=== PATIENT | male | born 1950 | race Caucasian/White ===

== ENCOUNTER 2019-09-29 18:52 | Inpatient (IN) ==
[2019-09-29 19:54] LABS: Basophils % 0.4 % (0.0-0.8); Eosinophils # 0.1 10*3/uL (0.0-0.87); Eosinophils % 1.2 % (0.00-10.9); Hemoglobin 16.5 GM/DL (14.0-18.0); Immature Granulocytes % 0.4 %; Immature Granulocytes Absolute 0.03 #; Lymphocytes # 1.7 10*3/uL (1.4-4.0); Lymphocytes % 24.1 % (21.2-54.2); Mean Corpuscular HGB Conc 34.4 GM/DL (32-36); Mean Corpuscular Volume 95.6 FL (87-102); Monocytes % 11.3 % (1.7-12.7); Neutrophils % 62.6 % (38.7-73.9); Platelet Count 169 T/CUMM (130-400); Red Blood Count 5.02 MC/CUMM (3.8-5.5); Red Cell Distribution Width 12.4 % (9.3-17.3); White Blood Count 6.9 T/CUMM (4-12)
[2019-09-29 20:05] LABS: INR 1.1; PT Patient Result 11.7 SECS (9.6-12.2); Partial Thromboplastin Time 25.9 SECS (20.8-36.0)
[2019-09-29 20:13] LABS: Alanine Aminotransferase 46 U/L (16-61); Albumin 3.6 G/DL (3.4-5.0); Alkaline Phosphatase 74 U/L (45-117); Aspartate Amino Transferase 42 U/L (0-37); Blood Urea Nitrogen 8 MG/DL (7-18); Calcium 9.8 MG/DL (8.5-10.1); Estimated Glom Filtration Rate 101 ML/MIN; Glucose 86 MG/DL (74-106); Total Protein 6.6 G/DL (6.4-8.3)
[2019-09-29] MEDS ORDERED: ALUMINUM/MAGNES/SIMETH MAX STR 30 ML UDCUP PO PRN (20:40)
[2019-09-29] MEDS ORDERED: ALBUTEROL/IPRATROPIUM 3 ML NEB RESP TX PRN (20:40)
[2019-09-29] MEDS ORDERED: hydrALAZINE 20 MG/1 ML VIAL IV PRN (20:40)
[2019-09-29] MEDS ORDERED: ACETAMINOPHEN 325 MG TABLET PO PRN (20:40)
[2019-09-29] MEDS ORDERED: ONDANSETRON 4 MG/2 ML VIAL IV PRN (20:40)
[2019-09-29] MEDS ORDERED: diphenhydrAMINE CAP 25 MG CAPSULE PO PRN (20:40)
[2019-09-29] MEDS ORDERED: NICOTINE 21 MG/24 HR PATCH TRANSDERM PRN (20:40)
[2019-09-29] MEDS ORDERED: ATORVASTATIN 40 MG TABLET PO SCH (21:00)
[2019-09-29 21:23] LABS: Risk Ratio 6.58; Thyroid Stimulating Hormone 2.83 uIU/ml (0.358-3.74); VLDL CHOLESTEROL 75.2 MG/DL
[2019-09-29] MEDS: ENOXAPARIN 40 MG/0.4 ML SYRINGE SUBCUT SCH (22:17)
[2019-09-29 22:41] LABS: Apearance,Urine CLEAR (Clear); Bilirubin,Urine Negative (Negative); Blood, Urine Negative (Negative); Glucose,Urine (UA) Negative (Negative); Ketones,Urine Negative (Negative); Mucus,Urine Few /LPF (Occasional); Nitrite,Urine Negative (Negative); Protein,Urine Negative; RBC,Urine 8 /HPF (0-4); Urine Color Yellow (Yellow); Urine Specific Gravity 1.012 (1.001-1.035); Urine Urobilinogen < 2.0 EU/DL (0.2-1.0); WBC,Urine 4 /HPF (0-6)
[2019-09-29 22:54] LABS: Barbiturates Screen,Urine Negative (Negative); Benzodiazepines Screen,Urine Negative (Negative); Cannabinoid Screen,Urine Negative (Negative); Opiate Screen,Urine Negative (Negative); Phencyclidine Screen,Urine Negative (Negative)
[2019-09-30] MEDS ORDERED: ASPIRIN 325 MG TABLET PO SCH (09:00)
[2019-09-30] MEDS: CLOPIDOGREL 75 MG TABLET PO SCH (14:05)
[2019-09-30] MEDS: ATORVASTATIN 80 MG TABLET PO SCH (21:11)
[2019-09-30] MEDS: ENOXAPARIN 40 MG/0.4 ML SYRINGE SUBCUT SCH (21:11)
[2019-10-01] MEDS: CLOPIDOGREL 75 MG TABLET PO SCH (09:29)
[2019-10-01] MEDS: ASPIRIN EC 81 MG TABLET PO SCH (09:29)
[2019-10-01] MEDS: ATORVASTATIN 80 MG TABLET PO SCH (20:10)
[2019-10-01] MEDS: ENOXAPARIN 40 MG/0.4 ML SYRINGE SUBCUT SCH (20:10)
[2019-10-02] MEDS: ASPIRIN EC 81 MG TABLET PO SCH (09:52)
[2019-10-02] MEDS: CLOPIDOGREL 75 MG TABLET PO SCH (09:52)
[2019-10-02 16:43] VITALS: BP 140/76
== END 2019-10-02 17:33 | DRG 65 ==
LOC: N.EDINP 18:52 → N.ED 18:52 → SUATTDRO 20:40 → N.4E 21:01
PROVIDERS: ADMIT Internal Medicine; ATTEND Family Medicine

== ENCOUNTER 2020-05-28 19:56 | Observation (INO) ==
[2020-05-28] MEDS ORDERED: ASPIRIN 325 MG TABLET PO STA (20:23)
[2020-05-28] MEDS ORDERED: MORPHINE 4 MG/1 ML VIAL IV STA (20:24)
[2020-05-28] MEDS ORDERED: NITROGLYCERIN 2% OINT 1 INCH/GM PACK TOP STA (20:24)
[2020-05-28] MEDS ORDERED: ONDANSETRON 4 MG/2 ML VIAL IV STA (20:24)
[2020-05-28] MEDS ORDERED: ALUM/MAG/SIMETH/LIDO VISC 1:1 30 ML BOTTLE PO STA (20:24)
[2020-05-28 20:33] LABS: Basophils # 0.1 10*3/uL (0.0-0.2); Basophils % 0.8 % (0.0-0.8); Eosinophils # 0.3 10*3/uL (0.0-0.87); Eosinophils % 4.1 % (0.00-10.9); Hematocrit 45.6 VOL% (42.0-52.0); Hemoglobin 16.2 GM/DL (14.0-18.0); Immature Granulocytes % 0.3 %; Immature Granulocytes Absolute 0.02 #; Lymphocytes # 2.5 10*3/uL (1.4-4.0); Lymphocytes % 32.6 % (21.2-54.2); Mean Corpuscular HGB Conc 35.5 GM/DL (32-36); Mean Corpuscular Volume 90.1 FL (87-102); Mean Platelet Volume 10.5 FL (9.6-12.0); Monocytes % 8.7 % (1.7-12.7); Neutrophils % 53.5 % (38.7-73.9); Platelet Count 192 T/CUMM (130-400); Red Blood Count 5.06 MC/CUMM (3.8-5.5); Red Cell Distribution Width 12.4 % (9.3-17.3); White Blood Count 7.6 T/CUMM (4-12)
[2020-05-28 20:42] LABS: PT Patient Result 10.9 SECS (9.8-11.9); Partial Thromboplastin Time 25.4 SECS (23.9-33.8)
[2020-05-28 21:00] LABS: Albumin 4.1 G/DL (3.4-5.0); Bilirubin,Total 1.2 MG/DL (0.2-1.0); Calcium 9.7 MG/DL (8.5-10.1); Osmolality,Calculated 279.3 MOS/KG (273-304); Total Protein 7.9 G/DL (6.4-8.3)
[2020-05-28] MEDS ORDERED: MORPHINE 4 MG/1 ML VIAL IV PRN (21:08)
[2020-05-28] MEDS ORDERED: GLUCAGON 1 MG VIAL IM PRN (21:08)
[2020-05-28] MEDS ORDERED: ONDANSETRON 4 MG/2 ML VIAL IV PRN (21:08)
[2020-05-28] MEDS ORDERED: DEXTROSE 50% 25 GM/50 ML VIAL IV PRN (21:08)
[2020-05-28] MEDS ORDERED: DEXTROSE 50% 25 GM/50 ML SYRINGE IV PRN (21:14)
[2020-05-28] MEDS ORDERED: ENOXAPARIN 40 MG/0.4 ML SYRINGE SUBCUT SCH (21:30)
[2020-05-29] MEDS ORDERED: NITROGLYCERIN 2% OINT 1 INCH/GM PACK TOP SCH (03:00)
[2020-05-29 07:44] VITALS: BP 131/75
[2020-05-29 08:03] LABS: Risk Ratio 2.89; VLDL CHOLESTEROL 40.4 MG/DL
[2020-05-29] MEDS ORDERED: ISOSORBIDE MONONITRATE 60 MG TABLET PO SCH (09:00)
[2020-05-29] MEDS ORDERED: CLOPIDOGREL 75 MG TABLET PO SCH (09:00)
[2020-05-29] MEDS ORDERED: ASPIRIN EC 81 MG TABLET PO SCH (21:00)
[2020-05-29] MEDS ORDERED: ATORVASTATIN 80 MG TABLET PO SCH (21:00)
== END 2020-05-29 11:05 | disposition home or self-care (01) ==
LOC: N.ED 19:56 → N.EDINP 19:56 → N.4E 05-29 00:07
PROVIDERS: ADMIT Internal Medicine; ATTEND Internal Medicine

== ENCOUNTER 2020-08-25 12:12 | Inpatient (IN) ==
[2020-09-04] MEDS ORDERED: GLUCAGON 1 MG VIAL IM PRN (08:38)
[2020-09-04] MEDS ORDERED: DEXTROSE 50% 25 GM/50 ML VIAL IV PRN (08:38)
[2020-09-04] MEDS ORDERED: CLORAZEPATE 3.75 MG TABLET PO PRN (12:11)
[2020-09-04] MEDS ORDERED: ZALEPLON 5 MG CAPSULE PO PRN (12:12)
[2020-09-04] MEDS ORDERED: MORPHINE 4 MG/1 ML VIAL IV PRN (12:12)
[2020-09-04] MEDS ORDERED: NITROGLYCERIN SL 0.4 MG TABLET SL PRN (12:12)
[2020-09-04 13:09] LABS: Basophils % 0.5 % (0.0-0.8); Eosinophils # 0.1 10*3/uL (0.0-0.87); Eosinophils % 1.6 % (0.00-10.9); Hematocrit 41.2 VOL% (42.0-52.0); Hemoglobin 13.7 GM/DL (14.0-18.0); Immature Granulocytes % 0.4 %; Immature Granulocytes Absolute 0.03 #; Lymphocytes # 1.2 10*3/uL (1.4-4.0); Lymphocytes % 14.5 % (21.2-54.2); Mean Corpuscular HGB Conc 33.3 GM/DL (32-36); Mean Corpuscular Volume 90.5 FL (87-102); Mean Platelet Volume 10.1 FL (9.6-12.0); Monocytes % 6.8 % (1.7-12.7); Neutrophils % 76.2 % (38.7-73.9); Platelet Count 269 T/CUMM (130-400); Red Blood Count 4.55 MC/CUMM (3.8-5.5); Red Cell Distribution Width 14.6 % (9.3-17.3); White Blood Count 7.9 T/CUMM (4-12)
[2020-09-04 13:32] LABS: Albumin 3.6 G/DL (3.4-5.0); Bilirubin,Total 1.1 MG/DL (0.2-1.0); Calcium 9.7 MG/DL (8.5-10.1); Osmolality,Calculated 277.7 MOS/KG (273-304); Potassium 3.9 MMOL/L (3.5-5.1); Total Protein 7.7 G/DL (6.4-8.3)
[2020-09-04] MEDS: CHLORHEXIDINE 4% SOLN 118 ML BOTTLE TOP SCH ×3 (13:38→20:45)
[2020-09-04] MEDS: CHLORHEXIDINE 0.12% ORAL RINSE 60 ML BOTTLE SWISH/SPIT SCH ×2 (13:55→20:45)
[2020-09-04] MEDS: SODIUM CHLORIDE 0.9% 1,000 ML IV SCH (15:16)
[2020-09-04 16:01] LABS: ABG Base Excess 1.6 MMOL/L (-2.5-2.5); ABG HCO3 25.8 MMOL/L (20-26); ABG Oxygen Saturation 95.3 % (95-100); ABG PCO2 40.3 MM HG (35-48); ABG PO2 76.6 MM HG (80-95); ABG TCO2 22.8 MMOL/L (23-27); Allen Test Positive; Pt O2 Delivery Device Room Air
[2020-09-05] MEDS ORDERED: CEFUROXIME INJ 1,500 MG in SYRINGE 1 EACH IV ONE (05:00)
[2020-09-05] MEDS ORDERED: PAPAVERINE 60 MG/2 ML VIAL ONE (05:05)
[2020-09-05] MEDS ORDERED: VANCOMYCIN 1,000 MG VIAL ONE (05:05)
[2020-09-05] MEDS ORDERED: VANCOMYCIN 500 MG VIAL ONE (05:05)
[2020-09-05] MEDS ORDERED: AMINOCAPROIC ACID 5,000 MG/20 ML VIAL ONE ×4 (05:47)
[2020-09-05] MEDS ORDERED: LIDOCAINE 2% 5 ML VIAL ONE ×2 (05:52→11:22)
[2020-09-05] MEDS ORDERED: VECURONIUM 10 MG VIAL IV ONE ×4 (05:54→08:13)
[2020-09-05] MEDS ORDERED: MIDAZOLAM 10 MG/2 ML VIAL ONE ×6 (05:56→08:08)
[2020-09-05] MEDS ORDERED: ETOMIDATE 40 MG/20 ML VIAL IV ONE (05:57)
[2020-09-05] MEDS ORDERED: SUFentanil 250 MCG/5 ML AMP ONE ×2 (05:58→06:06)
[2020-09-05] MEDS ORDERED: SODIUM CHLORIDE 0.9% 1,000 ML IV ONE ×2 (06:00→10:35)
[2020-09-05] MEDS ORDERED: LACTATED RINGERS 1,000 ML IV ONE (06:00)
[2020-09-05] MEDS ORDERED: SODIUM CHLORIDE 0.9% 250 ML IV ONE (06:00)
[2020-09-05] MEDS ORDERED: HEPARIN/NACL 0.9% 2 UNITS/ML 500 ML IV ONE (06:00)
[2020-09-05] MEDS ORDERED: PHENYLEPHRINE DRIP 20 MG/250 ML PREMIX IV ONE (06:00)
[2020-09-05] MEDS ORDERED: CALCIUM CHLORIDE 1,000 MG/10 ML VIAL IV ONE ×2 (06:01→11:59)
[2020-09-05] MEDS ORDERED: MINERAL OIL/PETROLATUM OPH OINT 3.5 GM TUBE ONE (06:02)
[2020-09-05] MEDS ORDERED: SEVOFLURANE 1 UNIT/15 MINUTE INH ONE ×12 (06:03→10:42)
[2020-09-05 07:31] LABS: ABG Base Excess -0.4 MMOL/L (-2.5-2.5); ABG HCO3 24.1 MMOL/L (20-26); ABG Oxygen Saturation 99.9 % (95-100); ABG PCO2 41.5 MM HG (35-48); ABG PH 7.382 (7.35-7.45); ABG TCO2 21.6 MMOL/L (23-27); Glucose Heart Surgery 109 MG/DL (74-106); Hematocrit Heart Surgery 39.9 PERCENT (42-52); PCO2 Patient Temp Arterial 41.5 MMHG; PH Patient Temp Arterial 7.382; Patient Temperature 37 CELCIUS; Potassium Heart/CVR 3.8 MMOL/L (3.5-5.1); Sodium Heart/CVR 141 MMOL/L (135-145)
[2020-09-05 09:26] LABS: Hematocrit Heart Surgery 27.8 PERCENT (42-52); PCO2 Patient Temp Venous 32.2 MM HG; PH Patient Temp Venous 7.478; PO2 Patient Temp Venous 38.1 MM HG; Potassium Heart/CVR 4.7 MMOL/L (3.5-5.1); VBG Base Excess 0.8 MEQ/L (0-4); VBG HCO3 24.9 MEQ/L (24-28); VBG Oxygen Saturation 83.1 %; VBG PCO2 37.2 MMHG (41-51); VBG PH 7.433; VBG PO2 46.9 MMHG (17-40)
[2020-09-05] MEDS ORDERED: PHENYLEPHRINE DRIP 40 MG/250 ML PREMIX IV ONE (09:31)
[2020-09-05] MEDS ORDERED: ALBUMIN 5% 12.5 GM/250 ML VIAL IV ONE ×3 (09:31→13:08)
[2020-09-05] MEDS ORDERED: POTASSIUM CHLORIDE RIDER 100 ML IV ONE (09:32)
[2020-09-05] MEDS ORDERED: PROTAMINE SULFATE 50 MG/5 ML VIAL IV ONE ×2 (09:32→13:08)
[2020-09-05 09:55] LABS: Hematocrit Heart Surgery 29.4 PERCENT (42-52); Hemoglobin Heart Surgery 9.5 G/DL (14.0-18.0); PCO2 Patient Temp Venous 33.5 MM HG; PH Patient Temp Venous 7.46; PO2 Patient Temp Venous 40.5 MM HG; Potassium Heart/CVR 5.4 MMOL/L (3.5-5.1); VBG Base Excess 0.5 MEQ/L (0-4); VBG HCO3 24.7 MEQ/L (24-28); VBG Oxygen Saturation 84.5 %; VBG PCO2 38.8 MMHG (41-51); VBG PH 7.416; VBG PO2 49.7 MMHG (17-40); VBG Total CO2 22.8 MMOL/L
[2020-09-05 10:33] LABS: Hematocrit Heart Surgery 28.1 PERCENT (42-52); Hemoglobin Heart Surgery 9.1 G/DL (14.0-18.0); PCO2 Patient Temp Venous 32.5 MM HG; PH Patient Temp Venous 7.457; PO2 Patient Temp Venous 33.7 MM HG; Potassium Heart/CVR 5.4 MMOL/L (3.5-5.1); VBG Base Excess -0.4 MEQ/L (0-4); VBG HCO3 23.8 MEQ/L (24-28); VBG Oxygen Saturation 76.2 %; VBG PCO2 37.6 MMHG (41-51); VBG PH 7.413; VBG PO2 41.6 MMHG (17-40); VBG Total CO2 22.2 MMOL/L
[2020-09-05 10:59] LABS: Hematocrit Heart Surgery 28.5 PERCENT (42-52); Hemoglobin Heart Surgery 9.2 G/DL (14.0-18.0); PCO2 Patient Temp Venous 40.5 MM HG; PH Patient Temp Venous 7.39; PO2 Patient Temp Venous 44.1 MM HG; Potassium Heart/CVR 4.4 MMOL/L (3.5-5.1); VBG Base Excess -0.4 MEQ/L (0-4); VBG HCO3 23.8 MEQ/L (24-28); VBG Oxygen Saturation 77.7 %; VBG PCO2 40.5 MMHG (41-51); VBG PH 7.39; VBG PO2 44.1 MMHG (17-40); VBG Total CO2 22.6 MMOL/L
[2020-09-05] MEDS: CHLORHEXIDINE 0.12% ORAL RINSE 60 ML BOTTLE SWISH/SPIT SCH ×2 (11:16→20:12)
[2020-09-05] MEDS: SODIUM CHLORIDE 0.9% 1,000 ML IV SCH (11:17)
[2020-09-05] MEDS ORDERED: methylPREDNISolone SOD SUC 1,000 MG/8 ML VIAL ONE (11:22)
[2020-09-05] MEDS ORDERED: MAGNESIUM SULFATE 5 GM/10 ML VIAL IV ONE (11:22)
[2020-09-05] MEDS ORDERED: ALBUMIN 25% 25 GM/100 ML VIAL IV ONE (11:22)
[2020-09-05 11:23] LABS: ABG Base Excess -1.5 MMOL/L (-2.5-2.5); ABG HCO3 23.2 MMOL/L (20-26); ABG PCO2 34.9 MM HG (35-48); ABG PH 7.418 (7.35-7.45); ABG TCO2 20.7 MMOL/L (23-27); Glucose Heart Surgery 166 MG/DL (74-106); Hematocrit Heart Surgery 28.5 PERCENT (42-52); Hemoglobin Heart Surgery 9.2 G/DL (14.0-18.0); Ionized Calcium Arterial 1.22 MMOL/L (1.21-1.46); PCO2 Patient Temp Arterial 34.9 MMHG; PH Patient Temp Arterial 7.418; Patient Temperature 37 CELCIUS; Potassium Heart/CVR 3.8 MMOL/L (3.5-5.1); Sodium Heart/CVR 134 MMOL/L (135-145)
[2020-09-05] MEDS ORDERED: HEPARIN 10,000 UNIT/10 ML VIAL ONE (11:23)
[2020-09-05] MEDS ORDERED: SODIUM BICARBONATE 50 MEQ/50 ML VIAL IV ONE (11:23)
[2020-09-05] MEDS ORDERED: MANNITOL 100 GM/500 ML BAG IV ONE (11:23)
[2020-09-05] MEDS ORDERED: DEXTROSE 5% KCL 20 MEQ 20 MEQ/1,000 ML BAG IV ONE (11:23)
[2020-09-05] MEDS ORDERED: FUROSEMIDE 20 MG/2 ML VIAL ONE (11:23)
[2020-09-05] MEDS ORDERED: PROTAMINE SULFATE 250 MG/25 ML VIAL IV ONE (11:23)
[2020-09-05] MEDS ORDERED: THROMBIN TOPICAL (RECOMBINANT) 5,000 UNIT VIAL TOP ONE (12:00)
[2020-09-05] MEDS ORDERED: SODIUM CHLORIDE 0.45% 1,000 ML IV SCH ×2 (12:06)
[2020-09-05] MEDS ORDERED: ONDANSETRON 4 MG/2 ML VIAL IV PRN (12:06)
[2020-09-05] MEDS ORDERED: INSULIN REGULAR 100 UNIT/ML IV ONE (12:06)
[2020-09-05] MEDS ORDERED: CHLORHEXIDINE 4% SOLN 118 ML BOTTLE TOP PRN (12:06)
[2020-09-05] MEDS ORDERED: PHENYLEPHRINE DRIP 40 MG/250 ML PREMIX IV PRN (12:06)
[2020-09-05] MEDS ORDERED: CALCIUM CHLORIDE 1,000 MG/10 ML SYRINGE IV PRN (12:06)
[2020-09-05] MEDS ORDERED: NITROPRUSSIDE 100 MG in DEXTROSE 5% 250 ML IV PRN (12:06)
[2020-09-05] MEDS ORDERED: ACETAMINOPHEN 650 MG SUPP RECTAL PRN (12:06)
[2020-09-05] MEDS ORDERED: MORPHINE 10 MG/1 ML VIAL IV PRN (12:06)
[2020-09-05] MEDS ORDERED: POTASSIUM CHLORIDE RIDER 10 MEQ in PREMIX 1 EACH IV PRN (12:06)
[2020-09-05] MEDS ORDERED: MAGNESIUM SULF RIDER 2 GM in PREMIX 1 EACH IV PRN (12:06)
[2020-09-05] MEDS ORDERED: VECURONIUM 10 MG VIAL IV PRN ×2 (12:06)
[2020-09-05] MEDS ORDERED: DEXTROSE 50% 25 GM/50 ML VIAL IV PRN ×2 (12:06)
[2020-09-05] MEDS ORDERED: MORPHINE 4 MG/1 ML VIAL IV PRN (12:06)
[2020-09-05] MEDS ORDERED: MIDAZOLAM 2 MG/2 ML VIAL IV PRN (12:06)
[2020-09-05] MEDS ORDERED: LACTATED RINGERS 250 ML IV PRN (12:06)
[2020-09-05] MEDS ORDERED: MIDAZOLAM 10 MG/2 ML VIAL IV PRN (12:06)
[2020-09-05] MEDS ORDERED: MAGNESIUM SULF RIDER 4 GM in PREMIX 1 EACH IV PRN (12:06)
[2020-09-05] MEDS ORDERED: INSULIN REGULAR 100 UNIT/ML IV PRN (12:06)
[2020-09-05] MEDS: LACTATED RINGERS 1,000 ML IV PRN ×3 (12:30→17:30)
[2020-09-05 13:08] LABS: ABG Base Excess -1.7 MMOL/L (-2.5-2.5); ABG HCO3 22.3 MMOL/L (20-26); ABG Oxygen Saturation 97.3 % (95-100); ABG PCO2 34.9 MM HG (35-48); ABG PH 7.424 (7.35-7.45); ABG PO2 107.6 MM HG (80-95); ABG TCO2 23.4 MMOL/L (23-27); Glucose Heart Surgery 135 MG/DL (74-106); Hemoglobin Heart Surgery 9.3 G/DL (14.0-18.0); Potassium Heart/CVR 3.7 MMOL/L (3.5-5.1)
[2020-09-05 13:11] LABS: Basophils % 0.3 % (0.0-0.8); Eosinophils % 0.3 % (0.00-10.9); Hematocrit 26.2 VOL% (42.0-52.0); Hemoglobin 8.8 GM/DL (14.0-18.0); Immature Granulocytes % 0.6 %; Immature Granulocytes Absolute 0.06 #; Lymphocytes # 0.6 10*3/uL (1.4-4.0); Lymphocytes % 6.4 % (21.2-54.2); Mean Corpuscular HGB Conc 33.6 GM/DL (32-36); Mean Corpuscular Volume 90.7 FL (87-102); Monocytes % 6.4 % (1.7-12.7); Platelet Count 152 T/CUMM (130-400); Red Blood Count 2.89 MC/CUMM (3.8-5.5); Red Cell Distribution Width 14.4 % (9.3-17.3); White Blood Count 10.1 T/CUMM (4-12)
[2020-09-05 13:23] LABS: INR 1.2; PT Patient Result 12.9 SECS (9.8-11.9); Partial Thromboplastin Time 31.1 SECS (23.9-33.8)
[2020-09-05] MEDS: POTASSIUM CHLORIDE RIDER 20 MEQ in PREMIX 1 EACH IV PRN (13:30)
[2020-09-05 13:32] LABS: CKMB % 7.6 %
[2020-09-05 13:39] LABS: Albumin 3.2 G/DL (3.4-5.0); Bilirubin,Total 1.8 MG/DL (0.2-1.0); Calcium 8.6 MG/DL (8.5-10.1); Osmolality,Calculated 278.5 MOS/KG (273-304); Potassium 3.8 MMOL/L (3.5-5.1); Total Protein 5.6 G/DL (6.4-8.3)
[2020-09-05 13:41] LABS: Troponin I 7.32 NG/ML (0.00-0.045)
[2020-09-05] MEDS: INSULIN REGULAR DRIP 100 ML IV SCH ×2 (14:06→23:19)
[2020-09-05] MEDS: ALBUMIN 5% 12.5 GM in PREMIX 1 EACH IV PRN ×2 (14:45→17:10)
[2020-09-05 15:57] LABS: ABG HCO3 22.8 MMOL/L (20-26); ABG Oxygen Saturation 99.4 % (95-100); ABG PCO2 36.6 MM HG (35-48); ABG PH 7.395 (7.35-7.45); Glucose Heart Surgery 176 MG/DL (74-106); Hematocrit Heart Surgery 35.8 PERCENT (42-52); Hemoglobin Heart Surgery 11.6 G/DL (14.0-18.0); Potassium Heart/CVR 5.6 MMOL/L (3.5-5.1)
[2020-09-05 19:42] LABS: ABG Base Excess -1.7 MMOL/L (-2.5-2.5); ABG HCO3 23.2 MMOL/L (20-26); ABG Oxygen Saturation 97.7 % (95-100); ABG PCO2 39.5 MM HG (35-48); ABG PH 7.386 (7.35-7.45); ABG PO2 111.8 MM HG (80-95); ABG TCO2 24.4 MMOL/L (23-27); Glucose Heart Surgery 178 MG/DL (74-106); Hemoglobin Heart Surgery 11.8 G/DL (14.0-18.0); Potassium Heart/CVR 4.8 MMOL/L (3.5-5.1)
[2020-09-05] MEDS: CEFUROXIME INJ 1,500 MG in SYRINGE 1 EACH IV SCH (20:12)
[2020-09-05 21:34] LABS: CKMB % 5.3 %; Troponin I 4.42 NG/ML (0.00-0.045)
[2020-09-05 22:32] LABS: ABG Base Excess -3.2 MMOL/L (-2.5-2.5); ABG HCO3 21.7 MMOL/L (20-26); ABG PCO2 43.6 MM HG (35-48); ABG PH 7.326 (7.35-7.45); ABG TCO2 20.6 MMOL/L (23-27); Glucose Heart Surgery 215 MG/DL (74-106); Hematocrit Heart Surgery 33.6 PERCENT (42-52); Hemoglobin Heart Surgery 10.9 G/DL (14.0-18.0); Potassium Heart/CVR 4.3 MMOL/L (3.5-5.1)
[2020-09-06 00:12] LABS: ABG Base Excess -1.8 MMOL/L (-2.5-2.5); ABG HCO3 22.9 MMOL/L (20-26); ABG Oxygen Saturation 97.8 % (95-100); ABG PCO2 38.8 MM HG (35-48); ABG PH 7.389 (7.35-7.45); ABG PO2 115.6 MM HG (80-95); ABG TCO2 24.1 MMOL/L (23-27); Glucose Heart Surgery 181 MG/DL (74-106); Hemoglobin Heart Surgery 11.1 G/DL (14.0-18.0); Potassium Heart/CVR 4.4 MMOL/L (3.5-5.1)
[2020-09-06 01:12] LABS: ABG Base Excess -2.2 MMOL/L (-2.5-2.5); ABG HCO3 22.5 MMOL/L (20-26); ABG Oxygen Saturation 98.4 % (95-100); ABG PCO2 41.5 MM HG (35-48); ABG PH 7.355 (7.35-7.45); ABG TCO2 20.9 MMOL/L (23-27); Glucose Heart Surgery 195 MG/DL (74-106); Hematocrit Heart Surgery 33.9 PERCENT (42-52); Potassium Heart/CVR 4.4 MMOL/L (3.5-5.1)
[2020-09-06 03:56] LABS: ABG Base Excess -1.9 MMOL/L (-2.5-2.5); ABG HCO3 22.8 MMOL/L (20-26); ABG Oxygen Saturation 98.3 % (95-100); ABG PCO2 38.6 MM HG (35-48); ABG PH 7.381 (7.35-7.45); ABG TCO2 20.6 MMOL/L (23-27); Glucose Heart Surgery 164 MG/DL (74-106)
[2020-09-06 04:03] LABS: Basophils % 0.1 % (0.0-0.8); Hematocrit 32.7 VOL% (42.0-52.0); Hemoglobin 10.9 GM/DL (14.0-18.0); Immature Granulocytes % 0.4 %; Immature Granulocytes Absolute 0.05 #; Lymphocytes # 0.7 10*3/uL (1.4-4.0); Lymphocytes % 5.6 % (21.2-54.2); Mean Corpuscular HGB Conc 33.3 GM/DL (32-36); Mean Corpuscular Volume 90.6 FL (87-102); Mean Platelet Volume 10.6 FL (9.6-12.0); Monocytes % 5.2 % (1.7-12.7); Neutrophils % 88.7 % (38.7-73.9); Platelet Count 168 T/CUMM (130-400); Red Blood Count 3.61 MC/CUMM (3.8-5.5); Red Cell Distribution Width 14.6 % (9.3-17.3); White Blood Count 12.8 T/CUMM (4-12)
[2020-09-06 04:22] LABS: Troponin I 3.42 NG/ML (0.00-0.045)
[2020-09-06] MEDS: POTASSIUM CHLORIDE RIDER 20 MEQ in PREMIX 1 EACH IV PRN (04:28)
[2020-09-06 04:45] LABS: Albumin 3.9 G/DL (3.4-5.0); Bilirubin,Direct 0.42 MG/DL (0.0-0.20); Bilirubin,Total 1.8 MG/DL (0.2-1.0); Calcium 8.8 MG/DL (8.5-10.1); Osmolality,Calculated 276.8 MOS/KG (273-304); Potassium 4.1 MMOL/L (3.5-5.1); Total Protein 6.2 G/DL (6.4-8.3)
[2020-09-06 05:08] LABS: ABG Base Excess -1.5 MMOL/L (-2.5-2.5); ABG HCO3 23.2 MMOL/L (20-26); ABG PCO2 40.5 MM HG (35-48); ABG PH 7.373 (7.35-7.45); ABG TCO2 21.3 MMOL/L (23-27); Glucose Heart Surgery 156 MG/DL (74-106); Hematocrit Heart Surgery 33.2 PERCENT (42-52); Hemoglobin Heart Surgery 10.7 G/DL (14.0-18.0); Potassium Heart/CVR 4.6 MMOL/L (3.5-5.1)
[2020-09-06] MEDS ORDERED: traMADol 50 MG TABLET PO PRN (08:48)
[2020-09-06] MEDS ORDERED: PANTOPRAZOLE 40 MG TABLET PO SCH (09:00)
[2020-09-06] MEDS ORDERED: SODIUM CHLOR 0.45% KCL 20 MEQ 20 MEQ/1,000 ML BAG IV SCH (09:34)
[2020-09-06] MEDS ORDERED: DEXTROSE 50% 25 GM/50 ML VIAL IV PRN ×2 (09:34)
[2020-09-06] MEDS ORDERED: MAGNESIUM SULF RIDER 4 GM in PREMIX 1 EACH IV PRN (09:34)
[2020-09-06] MEDS ORDERED: ALUMINUM/MAGNES/SIMETH MAX STR 30 ML UDCUP PO PRN (09:34)
[2020-09-06] MEDS ORDERED: ACETAMINOPHEN 325 MG TABLET PO PRN (09:34)
[2020-09-06] MEDS ORDERED: ONDANSETRON 4 MG/2 ML VIAL IV PRN (09:34)
[2020-09-06] MEDS ORDERED: GLUCAGON 1 MG VIAL IM PRN ×2 (09:34)
[2020-09-06] MEDS ORDERED: ZALEPLON 5 MG CAPSULE PO PRN (09:34)
[2020-09-06] MEDS ORDERED: MAGNESIUM SULF RIDER 2 GM in PREMIX 1 EACH IV PRN (09:34)
[2020-09-06] MEDS ORDERED: MAGNESIUM HYDROXIDE SUSP 30 ML UDCUP PO PRN (09:34)
[2020-09-06] MEDS: CEFUROXIME INJ 1,500 MG in SYRINGE 1 EACH IV SCH (09:35)
[2020-09-06] MEDS: CHLORHEXIDINE 0.12% ORAL RINSE 60 ML BOTTLE SWISH/SPIT SCH ×3 (09:38→21:19)
[2020-09-06] MEDS: FERROUS SULFATE 325 MG TABLET PO SCH (09:46)
[2020-09-06] MEDS: BEE POLLEN PO SCH ×2 (10:21→21:20)
[2020-09-06] MEDS: ISOSORBIDE MONONITRATE 60 MG TABLET PO SCH (10:21)
[2020-09-06] MEDS: amLODIPine 5 MG TABLET PO SCH (10:21)
[2020-09-06] MEDS: DUTASTERIDE 0.5 MG CAPSULE PO SCH (10:21)
[2020-09-06] MEDS: DOCUSATE SODIUM 100 MG CAPSULE PO SCH (10:22)
[2020-09-06] MEDS: oxyCODONE/ACETAMINOPHEN 5-325 MG TABLET PO PRN ×2 (10:22→18:46)
[2020-09-06] MEDS: KETOROLAC 30 MG/1 ML VIAL IV SCH ×3 (11:36→23:36)
[2020-09-06] MEDS: INSULIN REGULAR 100 UNIT/ML SUBCUT SCH ×3 (11:36→21:19)
[2020-09-06] MEDS: DICLOFENAC SODIUM 75 MG TABLET PO SCH ×2 (11:43→21:19)
[2020-09-06] MEDS: VENLAFAXINE 37.5 MG TABLET PO SCH (11:43)
[2020-09-06] MEDS: PYRIDOXINE 50 MG TABLET PO SCH (11:44)
[2020-09-06] MEDS: ASPIRIN EC 81 MG TABLET PO SCH (21:19)
[2020-09-06] MEDS: ATORVASTATIN 80 MG TABLET PO SCH (21:19)
[2020-09-07] MEDS: KETOROLAC 30 MG/1 ML VIAL IV SCH ×4 (05:12→22:31)
[2020-09-07] MEDS ORDERED: FUROSEMIDE 40 MG/4 ML VIAL IV ONE (06:00)
[2020-09-07 06:41] LABS: Basophils % 0.1 % (0.0-0.8); Hemoglobin 9.2 GM/DL (14.0-18.0); Immature Granulocytes % 0.6 %; Immature Granulocytes Absolute 0.09 #; Lymphocytes # 0.8 10*3/uL (1.4-4.0); Lymphocytes % 5.5 % (21.2-54.2); Mean Corpuscular HGB Conc 32.9 GM/DL (32-36); Mean Platelet Volume 11.2 FL (9.6-12.0); Monocytes % 5.9 % (1.7-12.7); Neutrophils % 87.9 % (38.7-73.9); Platelet Count 136 T/CUMM (130-400); Red Blood Count 2.98 MC/CUMM (3.8-5.5); Red Cell Distribution Width 14.6 % (9.3-17.3); White Blood Count 15.1 T/CUMM (4-12)
[2020-09-07 07:15] LABS: Albumin 3.3 G/DL (3.4-5.0); Bilirubin,Direct 0.22 MG/DL (0.0-0.20); Bilirubin,Indirect 1.4 MG/DL (0.0-1.0); Bilirubin,Total 1.6 MG/DL (0.2-1.0); CKMB % 2.2 %; Calcium 8.8 MG/DL (8.5-10.1); Osmolality,Calculated 281.5 MOS/KG (273-304); Potassium 4.2 MMOL/L (3.5-5.1); Total Protein 6.2 G/DL (6.4-8.3)
[2020-09-07 07:16] LABS: Troponin I 1.92 NG/ML (0.00-0.045)
[2020-09-07] MEDS: INSULIN REGULAR 100 UNIT/ML SUBCUT SCH ×4 (07:53→21:18)
[2020-09-07] MEDS: DUTASTERIDE 0.5 MG CAPSULE PO SCH (09:12)
[2020-09-07] MEDS: amLODIPine 5 MG TABLET PO SCH (09:12)
[2020-09-07] MEDS: ISOSORBIDE MONONITRATE 60 MG TABLET PO SCH (09:12)
[2020-09-07] MEDS: DOCUSATE SODIUM 100 MG CAPSULE PO SCH (09:12)
[2020-09-07] MEDS: FERROUS SULFATE 325 MG TABLET PO SCH (09:12)
[2020-09-07] MEDS: VENLAFAXINE 37.5 MG TABLET PO SCH (09:13)
[2020-09-07] MEDS: PYRIDOXINE 50 MG TABLET PO SCH (09:13)
[2020-09-07] MEDS: DICLOFENAC SODIUM 75 MG TABLET PO SCH ×2 (09:13→21:18)
[2020-09-07] MEDS: BEE POLLEN PO SCH ×2 (09:14→21:18)
[2020-09-07] MEDS: CHLORHEXIDINE 0.12% ORAL RINSE 60 ML BOTTLE SWISH/SPIT SCH ×2 (09:15→21:18)
[2020-09-07] MEDS: ATORVASTATIN 80 MG TABLET PO SCH (21:18)
[2020-09-07] MEDS: ASPIRIN EC 81 MG TABLET PO SCH (21:18)
[2020-09-08] MEDS: KETOROLAC 30 MG/1 ML VIAL IV SCH ×3 (04:37→16:50)
[2020-09-08 05:47] LABS: Basophils % 0.1 % (0.0-0.8); Eosinophils % 0.2 % (0.00-10.9); Hematocrit 27.4 VOL% (42.0-52.0); Immature Granulocytes % 0.8 %; Immature Granulocytes Absolute 0.08 #; Lymphocytes # 1.3 10*3/uL (1.4-4.0); Lymphocytes % 13.3 % (21.2-54.2); Mean Corpuscular HGB Conc 32.8 GM/DL (32-36); Mean Corpuscular Volume 91.3 FL (87-102); Mean Platelet Volume 10.9 FL (9.6-12.0); Monocytes % 7.8 % (1.7-12.7); Neutrophils % 77.8 % (38.7-73.9); Platelet Count 121 T/CUMM (130-400); Red Cell Distribution Width 14.6 % (9.3-17.3); White Blood Count 9.4 T/CUMM (4-12)
[2020-09-08 06:07] LABS: Calcium 8.5 MG/DL (8.5-10.1); Osmolality,Calculated 286.1 MOS/KG (273-304); Potassium 3.7 MMOL/L (3.5-5.1)
[2020-09-08 06:12] LABS: Alanine Aminotransferase 39 U/L (16-61); Albumin 3.2 G/DL (3.4-5.0); Alkaline Phosphatase 87 U/L (45-117); Aspartate Amino Transferase 38 U/L (0-37); Bilirubin,Indirect 1.7 MG/DL (0.0-1.0); Blood Urea Nitrogen 26 MG/DL (7-18); Calcium 8.7 MG/DL (8.5-10.1); Carbon Dioxide 29 MMOL/L (21-32); Estimated Glom Filtration Rate 103 ML/MIN; Glucose 91 MG/DL (74-106); Osmolality,Calculated 287.1 MOS/KG (273-304); Potassium 3.6 MMOL/L (3.5-5.1); Sodium 142 MMOL/L (136-145); Total Protein 6.3 G/DL (6.4-8.3)
[2020-09-08] MEDS: DUTASTERIDE 0.5 MG CAPSULE PO SCH (10:25)
[2020-09-08] MEDS: BEE POLLEN PO SCH ×2 (10:26→22:08)
[2020-09-08] MEDS: DOCUSATE SODIUM 100 MG CAPSULE PO SCH (10:27)
[2020-09-08] MEDS: VENLAFAXINE 37.5 MG TABLET PO SCH (10:27)
[2020-09-08] MEDS: FERROUS SULFATE 325 MG TABLET PO SCH (10:28)
[2020-09-08] MEDS: ISOSORBIDE MONONITRATE 60 MG TABLET PO SCH (10:28)
[2020-09-08] MEDS: PYRIDOXINE 50 MG TABLET PO SCH (10:29)
[2020-09-08] MEDS: DICLOFENAC SODIUM 75 MG TABLET PO SCH ×2 (10:29→22:17)
[2020-09-08] MEDS: amLODIPine 5 MG TABLET PO SCH (10:29)
[2020-09-08] MEDS: POTASSIUM CHLORIDE 20 MEQ TABLET PO PRN ×2 (10:30→11:29)
[2020-09-08] MEDS: CHLORHEXIDINE 0.12% ORAL RINSE 60 ML BOTTLE SWISH/SPIT SCH ×2 (10:31→22:07)
[2020-09-08] MEDS: INSULIN REGULAR 100 UNIT/ML SUBCUT SCH ×4 (11:00→22:08)
[2020-09-08] MEDS: ASCORBIC ACID 500 MG TABLET PO SCH ×2 (14:19→22:07)
[2020-09-08] MEDS: oxyCODONE/ACETAMINOPHEN 5-325 MG TABLET PO PRN (15:39)
[2020-09-08] MEDS ORDERED: NITROGLYCERIN SL 0.4 MG TABLET SL ONE (16:32)
[2020-09-08] MEDS: NITROGLYCERIN SL 0.4 MG TABLET SL PRN ×3 (16:35→16:45)
[2020-09-08] MEDS ORDERED: ALUM/MAG/SIMETH/LIDO VISC 1:1 30 ML BOTTLE PO ONE (16:46)
[2020-09-08] MEDS: HYDROmorphone 2 MG/1 ML VIAL IV PRN ×2 (17:12→22:05)
[2020-09-08] MEDS: METOPROLOL TARTRATE 25 MG TABLET PO SCH (22:06)
[2020-09-08] MEDS: ASPIRIN EC 81 MG TABLET PO SCH (22:06)
[2020-09-08] MEDS: ATORVASTATIN 80 MG TABLET PO SCH (22:07)
[2020-09-09] MEDS: KETOROLAC 30 MG/1 ML VIAL IV SCH ×5 (00:09→23:31)
[2020-09-09 05:41] LABS: Basophils % 0.2 % (0.0-0.8); Eosinophils # 0.1 10*3/uL (0.0-0.87); Eosinophils % 1.3 % (0.00-10.9); Hematocrit 28.5 VOL% (42.0-52.0); Hemoglobin 9.1 GM/DL (14.0-18.0); Immature Granulocytes % 0.5 %; Immature Granulocytes Absolute 0.04 #; Lymphocytes # 1.4 10*3/uL (1.4-4.0); Lymphocytes % 16.3 % (21.2-54.2); Mean Corpuscular HGB Conc 31.9 GM/DL (32-36); Mean Corpuscular Volume 94.7 FL (87-102); Mean Platelet Volume 10.6 FL (9.6-12.0); Monocytes % 6.2 % (1.7-12.7); Neutrophils % 75.5 % (38.7-73.9); Platelet Count 161 T/CUMM (130-400); Red Blood Count 3.01 MC/CUMM (3.8-5.5); Red Cell Distribution Width 14.6 % (9.3-17.3); White Blood Count 8.4 T/CUMM (4-12)
[2020-09-09 06:10] LABS: Calcium 9.3 MG/DL (8.5-10.1); Osmolality,Calculated 280.5 MOS/KG (273-304); Potassium 4.1 MMOL/L (3.5-5.1)
[2020-09-09] MEDS: INSULIN REGULAR 100 UNIT/ML SUBCUT SCH ×4 (08:07→21:25)
[2020-09-09] MEDS: DICLOFENAC SODIUM 75 MG TABLET PO SCH ×2 (09:40→21:23)
[2020-09-09] MEDS: DOCUSATE SODIUM 100 MG CAPSULE PO SCH (09:40)
[2020-09-09] MEDS: DUTASTERIDE 0.5 MG CAPSULE PO SCH (09:40)
[2020-09-09] MEDS: PYRIDOXINE 50 MG TABLET PO SCH (09:41)
[2020-09-09] MEDS: ISOSORBIDE MONONITRATE 60 MG TABLET PO SCH (09:41)
[2020-09-09] MEDS: ASCORBIC ACID 500 MG TABLET PO SCH ×2 (09:41→21:22)
[2020-09-09] MEDS: VENLAFAXINE 37.5 MG TABLET PO SCH (09:42)
[2020-09-09] MEDS: BEE POLLEN PO SCH ×2 (09:43→21:25)
[2020-09-09] MEDS: FERROUS SULFATE 325 MG TABLET PO SCH (09:43)
[2020-09-09] MEDS: METOPROLOL TARTRATE 25 MG TABLET PO SCH ×2 (10:16→21:23)
[2020-09-09] MEDS: CHLORHEXIDINE 0.12% ORAL RINSE 60 ML BOTTLE SWISH/SPIT SCH ×2 (10:16→21:28)
[2020-09-09] MEDS: oxyCODONE/ACETAMINOPHEN 5-325 MG TABLET PO PRN ×2 (15:44→21:24)
[2020-09-09] MEDS: ASPIRIN EC 81 MG TABLET PO SCH (21:21)
[2020-09-09] MEDS: ATORVASTATIN 80 MG TABLET PO SCH (21:22)
[2020-09-10] MEDS: KETOROLAC 30 MG/1 ML VIAL IV SCH ×4 (05:08→22:30)
[2020-09-10 05:33] LABS: Basophils % 0.4 % (0.0-0.8); Eosinophils # 0.4 10*3/uL (0.0-0.87); Eosinophils % 4.8 % (0.00-10.9); Hematocrit 27.2 VOL% (42.0-52.0); Immature Granulocytes % 0.5 %; Immature Granulocytes Absolute 0.04 #; Lymphocytes # 1.5 10*3/uL (1.4-4.0); Lymphocytes % 17.6 % (21.2-54.2); Mean Corpuscular HGB Conc 33.1 GM/DL (32-36); Mean Corpuscular Volume 93.2 FL (87-102); Mean Platelet Volume 10.3 FL (9.6-12.0); Monocytes % 6.8 % (1.7-12.7); Neutrophils % 69.9 % (38.7-73.9); Platelet Count 162 T/CUMM (130-400); Red Blood Count 2.92 MC/CUMM (3.8-5.5); Red Cell Distribution Width 14.4 % (9.3-17.3); White Blood Count 8.5 T/CUMM (4-12)
[2020-09-10 06:05] LABS: Alanine Aminotransferase 74 U/L (16-61); Albumin 2.9 G/DL (3.4-5.0); Alkaline Phosphatase 131 U/L (45-117); Aspartate Amino Transferase 47 U/L (0-37); Bilirubin,Indirect 1.5 MG/DL (0.0-1.0); Blood Urea Nitrogen 23 MG/DL (7-18); Calcium 9.2 MG/DL (8.5-10.1); Carbon Dioxide 28 MMOL/L (21-32); Estimated Glom Filtration Rate 109 ML/MIN; Glucose 85 MG/DL (74-106); Osmolality,Calculated 277.7 MOS/KG (273-304); Potassium 3.9 MMOL/L (3.5-5.1); Sodium 138 MMOL/L (136-145); Total Protein 6.4 G/DL (6.4-8.3); Troponin I 0.792 NG/ML (0.00-0.045)
[2020-09-10] MEDS: INSULIN REGULAR 100 UNIT/ML SUBCUT SCH ×4 (08:00→20:53)
[2020-09-10] MEDS: FERROUS SULFATE 325 MG TABLET PO SCH (08:45)
[2020-09-10] MEDS: DOCUSATE SODIUM 100 MG CAPSULE PO SCH (08:46)
[2020-09-10] MEDS: DUTASTERIDE 0.5 MG CAPSULE PO SCH (08:46)
[2020-09-10] MEDS: DICLOFENAC SODIUM 75 MG TABLET PO SCH ×2 (08:46→21:03)
[2020-09-10] MEDS: VENLAFAXINE 37.5 MG TABLET PO SCH (08:46)
[2020-09-10] MEDS: PYRIDOXINE 50 MG TABLET PO SCH (08:46)
[2020-09-10] MEDS: METOPROLOL TARTRATE 25 MG TABLET PO SCH ×2 (08:47→20:52)
[2020-09-10] MEDS: ISOSORBIDE MONONITRATE 60 MG TABLET PO SCH (08:47)
[2020-09-10] MEDS: ASCORBIC ACID 500 MG TABLET PO SCH ×2 (08:47→20:52)
[2020-09-10] MEDS: POTASSIUM CHLORIDE 20 MEQ TABLET PO PRN (08:48)
[2020-09-10] MEDS: BEE POLLEN PO SCH ×2 (08:52→20:56)
[2020-09-10] MEDS: CHLORHEXIDINE 0.12% ORAL RINSE 60 ML BOTTLE SWISH/SPIT SCH ×2 (08:52→20:51)
[2020-09-10] MEDS: ASPIRIN EC 81 MG TABLET PO SCH (20:52)
[2020-09-10] MEDS: ATORVASTATIN 80 MG TABLET PO SCH (20:52)
[2020-09-10] MEDS: oxyCODONE/ACETAMINOPHEN 5-325 MG TABLET PO PRN (20:52)
[2020-09-11 06:04] LABS: Basophils % 0.4 % (0.0-0.8); Eosinophils # 0.6 10*3/uL (0.0-0.87); Hematocrit 27.2 VOL% (42.0-52.0); Hemoglobin 9.2 GM/DL (14.0-18.0); Immature Granulocytes % 0.4 %; Immature Granulocytes Absolute 0.03 #; Lymphocytes # 1.5 10*3/uL (1.4-4.0); Lymphocytes % 17.9 % (21.2-54.2); Mean Corpuscular HGB Conc 33.8 GM/DL (32-36); Mean Corpuscular Volume 92.5 FL (87-102); Mean Platelet Volume 10.5 FL (9.6-12.0); Monocytes % 7.9 % (1.7-12.7); Neutrophils % 66.4 % (38.7-73.9); Platelet Count 178 T/CUMM (130-400); Red Blood Count 2.94 MC/CUMM (3.8-5.5); Red Cell Distribution Width 14.6 % (9.3-17.3); White Blood Count 8.3 T/CUMM (4-12)
[2020-09-11] MEDS: KETOROLAC 30 MG/1 ML VIAL IV SCH (06:13)
[2020-09-11 06:25] LABS: Alanine Aminotransferase 70 U/L (16-61); Alkaline Phosphatase 157 U/L (45-117); Aspartate Amino Transferase 43 U/L (0-37); Bilirubin,Indirect 1.3 MG/DL (0.0-1.0); Blood Urea Nitrogen 18 MG/DL (7-18); Carbon Dioxide 25 MMOL/L (21-32); Estimated Glom Filtration Rate 103 ML/MIN; Glucose 81 MG/DL (74-106); Osmolality,Calculated 281.3 MOS/KG (273-304); Potassium 3.9 MMOL/L (3.5-5.1); Sodium 141 MMOL/L (136-145); Total Protein 6.6 G/DL (6.4-8.3)
[2020-09-11 06:26] LABS: Troponin I 0.424 NG/ML (0.00-0.045)
[2020-09-11] MEDS: INSULIN REGULAR 100 UNIT/ML SUBCUT SCH (08:13)
[2020-09-11 08:26] LABS: Calcium 9.6 MG/DL (8.5-10.1); Osmolality,Calculated 278.5 MOS/KG (273-304); Potassium 4.3 MMOL/L (3.5-5.1)
[2020-09-11 08:36] VITALS: BP 104/68
[2020-09-11] MEDS: ASCORBIC ACID 500 MG TABLET PO SCH (08:48)
[2020-09-11] MEDS: DOCUSATE SODIUM 100 MG CAPSULE PO SCH (08:49)
[2020-09-11] MEDS: VENLAFAXINE 37.5 MG TABLET PO SCH (08:49)
[2020-09-11] MEDS: DUTASTERIDE 0.5 MG CAPSULE PO SCH (08:49)
[2020-09-11] MEDS: PYRIDOXINE 50 MG TABLET PO SCH (08:49)
[2020-09-11] MEDS: DICLOFENAC SODIUM 75 MG TABLET PO SCH (08:50)
[2020-09-11] MEDS: ISOSORBIDE MONONITRATE 60 MG TABLET PO SCH (08:50)
[2020-09-11] MEDS: FERROUS SULFATE 325 MG TABLET PO SCH (08:50)
[2020-09-11] MEDS: POTASSIUM CHLORIDE 20 MEQ TABLET PO PRN (08:51)
[2020-09-11] MEDS: BEE POLLEN PO SCH (08:51)
[2020-09-11] MEDS: CHLORHEXIDINE 0.12% ORAL RINSE 60 ML BOTTLE SWISH/SPIT SCH (08:51)
[2020-09-11] MEDS ORDERED: METOPROLOL SUCCINATE XL 25 MG TABLET PO SCH (09:00)
[2020-09-11] MEDS: oxyCODONE/ACETAMINOPHEN 5-325 MG TABLET PO PRN (10:35)
== END 2020-09-11 11:27 | disposition home health service (06) | DRG 236 ==
LOC: N.ADMINP 09-04 08:31 → N.CVR 09-05 12:11 → N.TELES 09-06 12:08

== ENCOUNTER 2021-03-09 17:38 | Inpatient (IN) ==
[2021-03-09] MEDS ORDERED: SODIUM CHLORIDE 0.9% 2,450 ML IV ONE (21:55)
[2021-03-09] MEDS ORDERED: PIPERACILLIN/TAZOBACTAM 3,375 MG in SODIUM CHLORIDE 0.9% 100 ML IV SCH (22:00)
[2021-03-09] MEDS ORDERED: VANCOMYCIN INJ 1,250 MG in SODIUM CHLORIDE 0.9% 250 ML IV SCH (22:00)
[2021-03-09] MEDS ORDERED: PIPERACILLIN/TAZOBACTAM 3,375 MG in SODIUM CHLORIDE 0.9% 100 ML IV STA (22:13)
[2021-03-09] MEDS ORDERED: VANCOMYCIN INJ 1,500 MG in SODIUM CHLORIDE 0.9% 500 ML IV STA (22:15)
[2021-03-09 22:37] LABS: Basophils # 0.1 10*3/uL (0.0-0.2); Basophils % 0.2 % (0.0-0.8); Hematocrit 39.2 VOL% (42.0-52.0); Hemoglobin 13.4 GM/DL (14.0-18.0); Immature Granulocytes % 4.5 %; Immature Granulocytes Absolute 1.47 #; Lymphocytes # 1.4 10*3/uL (1.4-4.0); Lymphocytes % 4.1 % (21.2-54.2); Mean Corpuscular HGB Conc 34.2 GM/DL (32-36); Mean Corpuscular Volume 93.1 FL (87-102); Mean Platelet Volume 10.5 FL (9.6-12.0); Monocytes % 5.5 % (1.7-12.7); Neutrophils % 85.7 % (38.7-73.9); Platelet Count 177 T/CUMM (130-400); Red Blood Count 4.21 MC/CUMM (3.8-5.5); Red Cell Distribution Width 14.4 % (9.3-17.3); White Blood Count 32.7 T/CUMM (4-12)
[2021-03-09 22:47] LABS: INR 1.2; PT Patient Result 13.2 SECS (10.5-12.0); Partial Thromboplastin Time 32.7 SECS (23.9-33.8)
[2021-03-09 23:19] LABS: Alanine Aminotransferase 28 U/L (16-61); Albumin 3.5 G/DL (3.4-5.0); Alkaline Phosphatase 129 U/L (45-117); Aspartate Amino Transferase 31 U/L (0-37); Blood Urea Nitrogen 28 MG/DL (7-18); Calcium 8.6 MG/DL (8.5-10.1); Carbon Dioxide 29 MMOL/L (21-32); Estimated Glom Filtration Rate 35 ML/MIN; Glucose 93 MG/DL (74-106); Osmolality,Calculated 284.4 MOS/KG (273-304); Potassium 3.9 MMOL/L (3.5-5.1); Sodium 140 MMOL/L (136-145)
[2021-03-09 23:53] LABS: Band Neutrophils 3 % (0-10); Lymphocytes 4 % (20-55); Platelet Estimate Normal; Segmented Neutrophils 88 % (50-85); Total Cells Counted 100
[2021-03-09 23:54] LABS: Microcytosis Slight; Polychromasia Slight
[2021-03-09 23:55] LABS: Stomatocytes Slight
[2021-03-10 00:03] LABS: Bilirubin,Urine Negative (Negative); Blood, Urine Large mg/dL (Negative); Glucose,Urine (UA) Negative (Negative); Hyaline Casts,Urine 112 /LPF (0-3); Ketones,Urine Negative (Negative); Mucus,Urine Few /LPF (Occasional); Nitrite,Urine Negative (Negative); Protein,Urine 30 MG/DL; RBC,Urine 46 /HPF (0-4); Urine Appearance CLOUDY (Clear); Urine Color Amber (Yellow); Urine Specific Gravity 1.018 (1.001-1.035); Urine Urobilinogen < 2.0 EU/DL (0.2-1.0)
[2021-03-10] MEDS ORDERED: ONDANSETRON 4 MG/2 ML VIAL IV PRN (00:49)
[2021-03-10] MEDS: SODIUM CHLORIDE 0.9% 1,000 ML IV SCH ×3 (01:48→16:21)
[2021-03-10 04:55] LABS: Basophils # 0.1 10*3/uL (0.0-0.2); Basophils % 0.2 % (0.0-0.8); Hemoglobin 12.2 GM/DL (14.0-18.0); Immature Granulocytes % 3.5 %; Immature Granulocytes Absolute 0.93 #; Lymphocytes # 1.2 10*3/uL (1.4-4.0); Lymphocytes % 4.6 % (21.2-54.2); Mean Corpuscular Volume 94.9 FL (87-102); Mean Platelet Volume 10.6 FL (9.6-12.0); Monocytes % 4.4 % (1.7-12.7); Neutrophils % 87.3 % (38.7-73.9); Platelet Count 157 T/CUMM (130-400); Red Cell Distribution Width 14.6 % (9.3-17.3); White Blood Count 26.6 T/CUMM (4-12)
[2021-03-10 05:18] LABS: Albumin 2.9 G/DL (3.4-5.0); Bilirubin,Total 4.5 MG/DL (0.20-1.00); Potassium 3.4 MMOL/L (3.5-5.1); Total Protein 6.4 G/DL (6.4-8.2)
[2021-03-10 05:21] LABS: Band Neutrophils 8 % (0-10); Hypochromasia Slight; Lymphocytes 3 % (20-55); Segmented Neutrophils 86 % (50-85); Total Cells Counted 100
[2021-03-10 05:22] LABS: Microcytosis Slight; Ovalocytes Slight
[2021-03-10] MEDS: PIPERACILLIN/TAZOBACTAM 3,375 MG in SODIUM CHLORIDE 0.9% 100 ML IV SCH ×3 (07:48→21:39)
[2021-03-10] MEDS ORDERED: PHENYLEPH/MINERAL OIL/PETROLAT 57 GM TUBE TOP PRN (10:35)
[2021-03-11] MEDS: SODIUM CHLORIDE 0.9% 1,000 ML IV SCH ×3 (01:01→21:15)
[2021-03-11 05:36] LABS: Basophils % 0.3 % (0.0-0.8); Eosinophils # 0.1 10*3/uL (0.0-0.87); Eosinophils % 0.5 % (0.00-10.9); Hemoglobin 11.4 GM/DL (14.0-18.0); Immature Granulocytes % 0.9 %; Immature Granulocytes Absolute 0.11 #; Lymphocytes % 7.6 % (21.2-54.2); Mean Corpuscular HGB Conc 32.6 GM/DL (32-36); Mean Corpuscular Volume 95.4 FL (87-102); Mean Platelet Volume 10.6 FL (9.6-12.0); Monocytes % 5.1 % (1.7-12.7); Neutrophils % 85.6 % (38.7-73.9); Platelet Count 146 T/CUMM (130-400); Red Blood Count 3.67 MC/CUMM (3.8-5.5); Red Cell Distribution Width 14.3 % (9.3-17.3); White Blood Count 12.4 T/CUMM (4-12)
[2021-03-11] MEDS: PIPERACILLIN/TAZOBACTAM 3,375 MG in SODIUM CHLORIDE 0.9% 100 ML IV SCH ×3 (06:01→22:30)
[2021-03-11 10:16] LABS: Calcium 8.2 MG/DL (8.5-10.1); Potassium 3.6 MMOL/L (3.5-5.1)
[2021-03-11] MEDS ORDERED: MAGNESIUM SULF RIDER 4 GM/100 ML PREMIX IV PRN (10:36)
[2021-03-11] MEDS ORDERED: MAGNESIUM SULF RIDER 2 GM/50 ML PREMIX IV PRN (10:36)
[2021-03-11] MEDS: POTASSIUM CHLORIDE 20 MEQ TABLET PO PRN ×2 (10:41→14:30)
[2021-03-11] MEDS: oxyCODONE/ACETAMINOPHEN 5-325 MG TABLET PO PRN ×2 (11:45→17:51)
[2021-03-11] MEDS: ENOXAPARIN 40 MG/0.4 ML SYRINGE SUBCUT SCH (11:53)
[2021-03-11] MEDS: TAMSULOSIN 0.4 MG CAPSULE PO SCH (20:32)
[2021-03-12] MEDS: SODIUM CHLORIDE 0.9% 1,000 ML IV SCH ×2 (05:17→20:24)
[2021-03-12 05:45] LABS: Basophils % 0.3 % (0.0-0.8); Eosinophils # 0.1 10*3/uL (0.0-0.87); Eosinophils % 1.3 % (0.00-10.9); Hematocrit 32.3 VOL% (42.0-52.0); Hemoglobin 10.5 GM/DL (14.0-18.0); Immature Granulocytes % 0.6 %; Immature Granulocytes Absolute 0.04 #; Lymphocytes % 14.2 % (21.2-54.2); Mean Corpuscular HGB Conc 32.5 GM/DL (32-36); Mean Corpuscular Volume 94.4 FL (87-102); Mean Platelet Volume 10.4 FL (9.6-12.0); Monocytes % 7.2 % (1.7-12.7); Neutrophils % 76.4 % (38.7-73.9); Platelet Count 154 T/CUMM (130-400); Red Blood Count 3.42 MC/CUMM (3.8-5.5); Red Cell Distribution Width 14.2 % (9.3-17.3)
[2021-03-12] MEDS: PIPERACILLIN/TAZOBACTAM 3,375 MG in SODIUM CHLORIDE 0.9% 100 ML IV SCH ×2 (06:21→17:41)
[2021-03-12 06:31] LABS: Albumin 2.4 G/DL (3.4-5.0); Bilirubin,Total 1.8 MG/DL (0.20-1.00); Calcium 8.7 MG/DL (8.5-10.1); Osmolality,Calculated 279.3 MOS/KG (273-304); Potassium 4.3 MMOL/L (3.5-5.1); Total Protein 6.1 G/DL (6.4-8.2)
[2021-03-12] MEDS: DUTASTERIDE 0.5 MG CAPSULE PO SCH (09:05)
[2021-03-12] MEDS: TAMSULOSIN 0.4 MG CAPSULE PO SCH ×2 (09:05→20:34)
[2021-03-12] MEDS: VANCOMYCIN 50 MG/ML 60 ML/BOTTLE PO SCH ×4 (09:05→23:12)
[2021-03-12] MEDS: ENOXAPARIN 40 MG/0.4 ML SYRINGE SUBCUT SCH (12:08)
[2021-03-12] MEDS: ACETAMINOPHEN 325 MG TABLET PO PRN (23:11)
[2021-03-13 05:02] LABS: Basophils % 0.3 % (0.0-0.8); Eosinophils # 0.1 10*3/uL (0.0-0.87); Eosinophils % 2.3 % (0.00-10.9); Hematocrit 34.1 VOL% (42.0-52.0); Hemoglobin 11.7 GM/DL (14.0-18.0); Immature Granulocytes % 0.5 %; Immature Granulocytes Absolute 0.03 #; Lymphocytes # 1.2 10*3/uL (1.4-4.0); Lymphocytes % 19.2 % (21.2-54.2); Mean Corpuscular HGB Conc 34.3 GM/DL (32-36); Mean Corpuscular Volume 92.4 FL (87-102); Mean Platelet Volume 10.1 FL (9.6-12.0); Monocytes % 10.9 % (1.7-12.7); Neutrophils % 66.8 % (38.7-73.9); Platelet Count 169 T/CUMM (130-400); Red Blood Count 3.69 MC/CUMM (3.8-5.5); Red Cell Distribution Width 13.7 % (9.3-17.3)
[2021-03-13] MEDS: VANCOMYCIN 50 MG/ML 60 ML/BOTTLE PO SCH ×4 (05:39→23:55)
[2021-03-13 05:40] LABS: Albumin 2.5 G/DL (3.4-5.0); Bilirubin,Total 1.1 MG/DL (0.20-1.00); Calcium 8.8 MG/DL (8.5-10.1); Osmolality,Calculated 280.1 MOS/KG (273-304); Total Protein 6.5 G/DL (6.4-8.2)
[2021-03-13] MEDS: TAMSULOSIN 0.4 MG CAPSULE PO SCH ×2 (08:49→21:16)
[2021-03-13] MEDS: DUTASTERIDE 0.5 MG CAPSULE PO SCH (08:49)
[2021-03-13] MEDS: ENOXAPARIN 40 MG/0.4 ML SYRINGE SUBCUT SCH (11:01)
[2021-03-13] MEDS: CHOLESTYRAMINE 4 GM PACK PO SCH ×2 (11:02→21:16)
[2021-03-13] MEDS: ACETAMINOPHEN 325 MG TABLET PO PRN (21:16)
[2021-03-14] MEDS: VANCOMYCIN 50 MG/ML 60 ML/BOTTLE PO SCH (06:33)
[2021-03-14 08:04] VITALS: BP 138/75
[2021-03-14] MEDS: DUTASTERIDE 0.5 MG CAPSULE PO SCH (09:34)
[2021-03-14] MEDS: CHOLESTYRAMINE 4 GM PACK PO SCH (09:34)
[2021-03-14] MEDS: TAMSULOSIN 0.4 MG CAPSULE PO SCH (09:34)
== END 2021-03-14 10:56 | disposition home or self-care (01) | DRG 872 ==
LOC: N.ED 17:38 → N.EDINP 03-10 00:49 → SUATTDRO 03-10 00:49 → N.TELEN 03-10 01:43
PROVIDERS: ADMIT Student in an Organized Health Care Education/Training Program; ATTEND Internal Medicine Geriatric Medicine

== ENCOUNTER 2021-06-18 17:54 | Inpatient (IN) ==
[2021-06-18] MEDS ORDERED: ASPIRIN 325 MG TABLET PO STA (18:52)
[2021-06-18] MEDS ORDERED: NITROGLYCERIN SL 0.4 MG TABLET SL PRN (18:52)
[2021-06-18] MEDS ORDERED: MORPHINE 2 MG/1 ML SYRINGE IV STA (18:52)
[2021-06-18 19:43] LABS: Basophils # 0.1 10*3/uL (0.0-0.2); Basophils % 0.7 % (0.0-0.8); Eosinophils # 0.3 10*3/uL (0.0-0.87); Hematocrit 40.8 VOL% (42.0-52.0); Hemoglobin 13.4 GM/DL (14.0-18.0); Immature Granulocytes % 0.3 %; Immature Granulocytes Absolute 0.03 #; Lymphocytes # 1.7 10*3/uL (1.4-4.0); Lymphocytes % 18.1 % (21.2-54.2); Mean Corpuscular HGB Conc 32.8 GM/DL (32-36); Mean Corpuscular Volume 94.2 FL (87-102); Mean Platelet Volume 10.1 FL (9.6-12.0); Monocytes % 6.7 % (1.7-12.7); Neutrophils % 71.2 % (38.7-73.9); Platelet Count 232 T/CUMM (130-400); Red Blood Count 4.33 MC/CUMM (3.8-5.5); Red Cell Distribution Width 13.8 % (9.3-17.3); White Blood Count 9.1 T/CUMM (4-12)
[2021-06-18 20:07] LABS: Albumin 3.8 G/DL (3.4-5.0); Bilirubin,Total 1.1 MG/DL (0.20-1.00); Calcium 9.3 MG/DL (8.5-10.1); Osmolality,Calculated 278.5 MOS/KG (273-304); Potassium 4.1 MMOL/L (3.5-5.1); Total Protein 7.2 G/DL (6.4-8.2)
[2021-06-18] MEDS ORDERED: cefTRIAXone 1,000 MG in SODIUM CHLORIDE 0.9% 100 ML IV STA (21:07)
[2021-06-18] MEDS ORDERED: metroNIDAZOLE INJ 500 MG/100 ML PREMIX IV STA (21:08)
[2021-06-18] MEDS ORDERED: GLUCAGON 1 MG VIAL IM PRN (21:11)
[2021-06-18] MEDS ORDERED: NICOTINE 21 MG/24 HR PATCH TRANSDERM PRN (21:11)
[2021-06-18] MEDS ORDERED: ONDANSETRON 4 MG/2 ML VIAL IV PRN (21:11)
[2021-06-18] MEDS ORDERED: ZALEPLON 5 MG CAPSULE PO PRN (21:11)
[2021-06-18] MEDS ORDERED: DEXTROSE 50% 25 GM/50 ML VIAL IV PRN (21:11)
[2021-06-18] MEDS ORDERED: ACETAMINOPHEN 325 MG TABLET PO PRN (21:11)
[2021-06-18] MEDS ORDERED: DOCUSATE SODIUM 100 MG CAPSULE PO PRN (21:11)
[2021-06-18] MEDS ORDERED: guaiFENesin/DM ER 600-30 MG TABLET PO PRN (21:11)
[2021-06-18] MEDS ORDERED: diphenhydrAMINE CAP 25 MG CAPSULE PO PRN (21:11)
[2021-06-18] MEDS ORDERED: hydrALAZINE 20 MG/1 ML VIAL IV PRN (21:11)
[2021-06-18] MEDS: HEPARIN 5,000 UNIT/1 ML VIAL SUBCUT SCH (21:34)
[2021-06-18] MEDS ORDERED: metroNIDAZOLE INJ 500 MG/100 ML PREMIX IV SCH (22:30)
[2021-06-19 01:33] LABS: Basophils # 0.1 10*3/uL (0.0-0.2); Basophils % 0.7 % (0.0-0.8); Eosinophils # 0.2 10*3/uL (0.0-0.87); Eosinophils % 2.6 % (0.00-10.9); Hematocrit 40.3 VOL% (42.0-52.0); Hemoglobin 13.2 GM/DL (14.0-18.0); Immature Granulocytes % 0.4 %; Immature Granulocytes Absolute 0.04 #; Lymphocytes # 1.7 10*3/uL (1.4-4.0); Lymphocytes % 18.9 % (21.2-54.2); Mean Corpuscular HGB Conc 32.8 GM/DL (32-36); Mean Corpuscular Volume 93.9 FL (87-102); Mean Platelet Volume 9.8 FL (9.6-12.0); Monocytes % 6.5 % (1.7-12.7); Neutrophils % 70.9 % (38.7-73.9); Platelet Count 218 T/CUMM (130-400); Red Blood Count 4.29 MC/CUMM (3.8-5.5); Red Cell Distribution Width 13.9 % (9.3-17.3); White Blood Count 8.9 T/CUMM (4-12)
[2021-06-19 01:47] LABS: Albumin 3.6 G/DL (3.4-5.0); Bilirubin,Total 0.8 MG/DL (0.20-1.00); Calcium 9.3 MG/DL (8.5-10.1); Osmolality,Calculated 276.7 MOS/KG (273-304); Potassium 3.8 MMOL/L (3.5-5.1); Total Protein 7.6 G/DL (6.4-8.2)
[2021-06-19] MEDS: ALBUTEROL 2.5 MG/3 ML NEB RESP TX SCH ×4 (03:20→19:56)
[2021-06-19] MEDS: metroNIDAZOLE 500 MG TABLET PO SCH ×3 (05:54→21:36)
[2021-06-19] MEDS: HEPARIN 5,000 UNIT/1 ML VIAL SUBCUT SCH ×2 (08:58→21:37)
[2021-06-19] MEDS: MORPHINE 2 MG/1 ML SYRINGE IV PRN ×2 (08:58→16:21)
[2021-06-19] MEDS ORDERED: PANTOPRAZOLE 40 MG TABLET PO SCH (09:00)
[2021-06-19] MEDS ORDERED: ALUM/MAG/SIMETH/LIDO VISC 1:1 30 ML BOTTLE PO PRN (11:41)
[2021-06-19] MEDS: VENLAFAXINE XR 37.5 MG CAPSULE PO SCH (11:42)
[2021-06-19] MEDS: DUTASTERIDE 0.5 MG CAPSULE PO SCH (11:43)
[2021-06-19] MEDS: TAMSULOSIN 0.4 MG CAPSULE PO SCH ×2 (11:43→21:36)
[2021-06-19] MEDS: ISOSORBIDE MONONITRATE 60 MG TABLET PO SCH (11:43)
[2021-06-19] MEDS: METOPROLOL SUCCINATE XL 25 MG TABLET PO SCH (11:43)
[2021-06-19] MEDS: FAMOTIDINE 20 MG TABLET PO SCH ×2 (13:27→21:36)
[2021-06-19] MEDS ORDERED: cefTRIAXone 1,000 MG in SODIUM CHLORIDE 0.9% 100 ML IV SCH (21:00)
[2021-06-19] MEDS ORDERED: ASPIRIN 325 MG TABLET PO SCH (21:00)
[2021-06-19] MEDS ORDERED: ATORVASTATIN 80 MG TABLET PO SCH (21:00)
[2021-06-20] MEDS: ALBUTEROL 2.5 MG/3 ML NEB RESP TX SCH ×3 (00:38→13:05)
[2021-06-20 04:19] LABS: Basophils # 0.1 10*3/uL (0.0-0.2); Basophils % 0.8 % (0.0-0.8); Eosinophils # 0.3 10*3/uL (0.0-0.87); Eosinophils % 5.1 % (0.00-10.9); Hematocrit 34.1 VOL% (42.0-52.0); Hemoglobin 11.1 GM/DL (14.0-18.0); Immature Granulocytes % 0.3 %; Immature Granulocytes Absolute 0.02 #; Lymphocytes # 1.3 10*3/uL (1.4-4.0); Lymphocytes % 20.6 % (21.2-54.2); Mean Corpuscular HGB Conc 32.6 GM/DL (32-36); Mean Corpuscular Volume 95.5 FL (87-102); Mean Platelet Volume 10.3 FL (9.6-12.0); Monocytes % 8.7 % (1.7-12.7); Neutrophils % 64.5 % (38.7-73.9); Platelet Count 189 T/CUMM (130-400); Red Blood Count 3.57 MC/CUMM (3.8-5.5); Red Cell Distribution Width 13.7 % (9.3-17.3); White Blood Count 6.3 T/CUMM (4-12)
[2021-06-20 04:32] LABS: Calcium 8.9 MG/DL (8.5-10.1); Osmolality,Calculated 278.5 MOS/KG (273-304); Potassium 3.5 MMOL/L (3.5-5.1)
[2021-06-20] MEDS: metroNIDAZOLE 500 MG TABLET PO SCH ×2 (05:48→14:43)
[2021-06-20] MEDS: ISOSORBIDE MONONITRATE 60 MG TABLET PO SCH (09:46)
[2021-06-20] MEDS: FAMOTIDINE 20 MG TABLET PO SCH (09:46)
[2021-06-20] MEDS: HEPARIN 5,000 UNIT/1 ML VIAL SUBCUT SCH (09:46)
[2021-06-20] MEDS: VENLAFAXINE XR 37.5 MG CAPSULE PO SCH (09:46)
[2021-06-20] MEDS: METOPROLOL SUCCINATE XL 25 MG TABLET PO SCH (09:46)
[2021-06-20] MEDS: DUTASTERIDE 0.5 MG CAPSULE PO SCH (09:46)
[2021-06-20] MEDS: TAMSULOSIN 0.4 MG CAPSULE PO SCH (10:51)
[2021-06-20 12:21] VITALS: BP 104/86
== END 2021-06-20 14:42 | disposition home or self-care (01) | DRG 392 ==
LOC: N.ED 17:54 → N.EDINP 21:11 → N.3E 06-19 00:45
PROVIDERS: ADMIT Internal Medicine; ATTEND Internal Medicine

== ENCOUNTER 2021-06-23 15:39 | Inpatient (IN) ==
[2021-06-23] MEDS ORDERED: SODIUM CHLORIDE 0.9% 1,000 ML IV STA ×2 (16:34→16:36)
[2021-06-23 16:48] LABS: Basophils % 0.5 % (0.0-0.8); Eosinophils # 0.3 10*3/uL (0.0-0.87); Eosinophils % 4.8 % (0.00-10.9); Hematocrit 39.5 VOL% (42.0-52.0); Immature Granulocytes % 0.4 %; Immature Granulocytes Absolute 0.02 #; Lymphocytes # 1.3 10*3/uL (1.4-4.0); Lymphocytes % 23.8 % (21.2-54.2); Mean Corpuscular HGB Conc 32.9 GM/DL (32-36); Mean Corpuscular Volume 94.5 FL (87-102); Mean Platelet Volume 9.3 FL (9.6-12.0); Monocytes % 8.6 % (1.7-12.7); Neutrophils % 61.9 % (38.7-73.9); Platelet Count 269 T/CUMM (130-400); Red Blood Count 4.18 MC/CUMM (3.8-5.5); Red Cell Distribution Width 13.6 % (9.3-17.3); White Blood Count 5.6 T/CUMM (4-12)
[2021-06-23 17:09] LABS: Albumin 3.3 G/DL (3.4-5.0); Bilirubin,Total 0.6 MG/DL (0.20-1.00); Calcium 9.3 MG/DL (8.5-10.1); Osmolality,Calculated 273.8 MOS/KG (273-304); Potassium 3.9 MMOL/L (3.5-5.1); Total Protein 7.1 G/DL (6.4-8.2)
[2021-06-23] MEDS ORDERED: ONDANSETRON 4 MG/2 ML VIAL IV PRN (18:24)
[2021-06-23] MEDS ORDERED: ACETAMINOPHEN 325 MG TABLET PO PRN (18:24)
[2021-06-23] MEDS ORDERED: NITROGLYCERIN SL 0.4 MG TABLET SL PRN (18:30)
[2021-06-23] MEDS: SODIUM CHLORIDE 0.9% 1,000 ML IV SCH (19:33)
[2021-06-23 20:19] LABS: Bacteria,Urine Occasional /HPF (Few); Bilirubin,Urine Negative (Negative); Blood, Urine Negative (Negative); Glucose,Urine (UA) Negative (Negative); Ketones,Urine Negative (Negative); Mucus,Urine Occasional /LPF (Occasional); Nitrite,Urine Negative (Negative); Protein,Urine Negative; RBC,Urine 1 /HPF (0-4); Squamous Epithelial Cell,Urine Occasional /HPF (0-10); Urine Appearance CLEAR (Clear); Urine Color Yellow (Yellow); Urine Specific Gravity 1.008 (1.001-1.035); Urine Urobilinogen < 2.0 EU/DL (0.2-1.0)
[2021-06-23] MEDS: TAMSULOSIN 0.4 MG CAPSULE PO SCH (21:40)
[2021-06-23] MEDS: ASPIRIN 325 MG TABLET PO SCH (21:41)
[2021-06-23] MEDS: CIPROFLOXACIN 500 MG TABLET PO SCH (21:41)
[2021-06-23] MEDS: metroNIDAZOLE 500 MG TABLET PO SCH (21:41)
[2021-06-23] MEDS: ATORVASTATIN 80 MG TABLET PO SCH (21:41)
[2021-06-23] MEDS: DICLOFENAC SODIUM 75 MG TABLET PO SCH (21:41)
[2021-06-23] MEDS: BEE POLLEN 550 MG PO SCH (22:48)
[2021-06-24] MEDS: SODIUM CHLORIDE 0.9% 1,000 ML IV SCH ×2 (05:44→17:48)
[2021-06-24 07:56] LABS: Basophils % 0.4 % (0.0-0.8); Eosinophils # 0.4 10*3/uL (0.0-0.87); Eosinophils % 5.3 % (0.00-10.9); Hematocrit 35.6 VOL% (42.0-52.0); Hemoglobin 11.5 GM/DL (14.0-18.0); Immature Granulocytes % 0.3 %; Immature Granulocytes Absolute 0.02 #; Lymphocytes # 1.4 10*3/uL (1.4-4.0); Lymphocytes % 19.6 % (21.2-54.2); Mean Corpuscular HGB Conc 32.3 GM/DL (32-36); Mean Corpuscular Volume 95.7 FL (87-102); Mean Platelet Volume 9.9 FL (9.6-12.0); Monocytes % 8.2 % (1.7-12.7); Neutrophils % 66.2 % (38.7-73.9); Platelet Count 216 T/CUMM (130-400); Red Blood Count 3.72 MC/CUMM (3.8-5.5); Red Cell Distribution Width 13.4 % (9.3-17.3); White Blood Count 6.9 T/CUMM (4-12)
[2021-06-24 08:16] LABS: Albumin 2.7 G/DL (3.4-5.0); Bilirubin,Total 0.7 MG/DL (0.20-1.00); Calcium 8.7 MG/DL (8.5-10.1); Osmolality,Calculated 276.5 MOS/KG (273-304); Potassium 4.5 MMOL/L (3.5-5.1); Total Protein 5.9 G/DL (6.4-8.2)
[2021-06-24] MEDS: ISOSORBIDE MONONITRATE 60 MG TABLET PO SCH (09:16)
[2021-06-24] MEDS: ENOXAPARIN 40 MG/0.4 ML SYRINGE SUBCUT SCH (09:17)
[2021-06-24] MEDS: VENLAFAXINE XR 37.5 MG CAPSULE PO SCH (09:17)
[2021-06-24] MEDS: DUTASTERIDE 0.5 MG CAPSULE PO SCH (09:17)
[2021-06-24] MEDS: CIPROFLOXACIN 500 MG TABLET PO SCH ×2 (09:18→22:41)
[2021-06-24] MEDS: TAMSULOSIN 0.4 MG CAPSULE PO SCH ×2 (09:18→22:42)
[2021-06-24] MEDS: DICLOFENAC SODIUM 75 MG TABLET PO SCH ×2 (09:18→22:42)
[2021-06-24] MEDS: metroNIDAZOLE 500 MG TABLET PO SCH ×3 (09:18→22:42)
[2021-06-24] MEDS: METOPROLOL SUCCINATE XL 25 MG TABLET PO SCH (09:18)
[2021-06-24] MEDS: BEE POLLEN 550 MG PO SCH ×2 (13:21→22:42)
[2021-06-24] MEDS: VANCOMYCIN 50 MG/ML 60 ML/BOTTLE PO SCH ×2 (14:18→18:36)
[2021-06-24] MEDS: ASPIRIN 325 MG TABLET PO SCH (22:42)
[2021-06-24] MEDS: ATORVASTATIN 80 MG TABLET PO SCH (22:42)
[2021-06-25] MEDS: VANCOMYCIN 50 MG/ML 60 ML/BOTTLE PO SCH ×4 (00:26→17:54)
[2021-06-25] MEDS: SODIUM CHLORIDE 0.9% 1,000 ML IV SCH ×3 (00:30→15:15)
[2021-06-25 06:30] LABS: Basophils % 0.3 % (0.0-0.8); Eosinophils # 0.3 10*3/uL (0.0-0.87); Eosinophils % 5.2 % (0.00-10.9); Hematocrit 34.1 VOL% (42.0-52.0); Hemoglobin 11.2 GM/DL (14.0-18.0); Immature Granulocytes % 0.3 %; Immature Granulocytes Absolute 0.02 #; Lymphocytes # 1.1 10*3/uL (1.4-4.0); Lymphocytes % 16.8 % (21.2-54.2); Mean Corpuscular HGB Conc 32.8 GM/DL (32-36); Mean Corpuscular Volume 95.3 FL (87-102); Mean Platelet Volume 10.1 FL (9.6-12.0); Monocytes % 8.1 % (1.7-12.7); Neutrophils % 69.3 % (38.7-73.9); Platelet Count 214 T/CUMM (130-400); Red Blood Count 3.58 MC/CUMM (3.8-5.5); Red Cell Distribution Width 13.4 % (9.3-17.3); White Blood Count 6.6 T/CUMM (4-12)
[2021-06-25 06:58] LABS: Albumin 2.7 G/DL (3.4-5.0); Bilirubin,Total 0.9 MG/DL (0.20-1.00); Calcium 8.7 MG/DL (8.5-10.1); Osmolality,Calculated 275.5 MOS/KG (273-304); Potassium 3.9 MMOL/L (3.5-5.1); Total Protein 5.9 G/DL (6.4-8.2)
[2021-06-25] MEDS: ISOSORBIDE MONONITRATE 60 MG TABLET PO SCH (10:38)
[2021-06-25] MEDS: DUTASTERIDE 0.5 MG CAPSULE PO SCH (10:38)
[2021-06-25] MEDS: DICLOFENAC SODIUM 75 MG TABLET PO SCH ×2 (10:39→22:32)
[2021-06-25] MEDS: VENLAFAXINE XR 37.5 MG CAPSULE PO SCH (10:39)
[2021-06-25] MEDS: CIPROFLOXACIN 500 MG TABLET PO SCH (10:39)
[2021-06-25] MEDS: metroNIDAZOLE 500 MG TABLET PO SCH (10:39)
[2021-06-25] MEDS: TAMSULOSIN 0.4 MG CAPSULE PO SCH ×2 (10:39→22:31)
[2021-06-25] MEDS: METOPROLOL SUCCINATE XL 25 MG TABLET PO SCH (10:40)
[2021-06-25] MEDS: BEE POLLEN 550 MG PO SCH ×2 (10:43→22:32)
[2021-06-25] MEDS: ENOXAPARIN 40 MG/0.4 ML SYRINGE SUBCUT SCH (10:44)
[2021-06-25] MEDS: ATORVASTATIN 80 MG TABLET PO SCH (22:31)
[2021-06-25] MEDS: ASPIRIN 325 MG TABLET PO SCH (22:31)
[2021-06-26] MEDS: VANCOMYCIN 50 MG/ML 60 ML/BOTTLE PO SCH ×5 (00:02→23:35)
[2021-06-26] MEDS: SODIUM CHLORIDE 0.9% 1,000 ML IV SCH ×3 (01:16→16:11)
[2021-06-26 05:53] LABS: Basophils % 0.4 % (0.0-0.8); Eosinophils # 0.3 10*3/uL (0.0-0.87); Eosinophils % 4.4 % (0.00-10.9); Hemoglobin 11.4 GM/DL (14.0-18.0); Immature Granulocytes % 0.2 %; Immature Granulocytes Absolute 0.01 #; Lymphocytes % 17.8 % (21.2-54.2); Mean Corpuscular HGB Conc 33.5 GM/DL (32-36); Mean Corpuscular Volume 95.8 FL (87-102); Mean Platelet Volume 9.8 FL (9.6-12.0); Monocytes % 8.3 % (1.7-12.7); Neutrophils % 68.9 % (38.7-73.9); Platelet Count 223 T/CUMM (130-400); Red Blood Count 3.55 MC/CUMM (3.8-5.5); Red Cell Distribution Width 13.4 % (9.3-17.3); White Blood Count 5.7 T/CUMM (4-12)
[2021-06-26 06:20] LABS: Albumin 2.9 G/DL (3.4-5.0); Bilirubin,Total 0.7 MG/DL (0.20-1.00); Calcium 8.8 MG/DL (8.5-10.1); Osmolality,Calculated 274.5 MOS/KG (273-304); Potassium 3.7 MMOL/L (3.5-5.1); Total Protein 6.2 G/DL (6.4-8.2)
[2021-06-26] MEDS: METOPROLOL SUCCINATE XL 25 MG TABLET PO SCH (09:17)
[2021-06-26] MEDS: LACTATED RINGERS 1,000 ML IV SCH (12:00)
[2021-06-26] MEDS ORDERED: propofoL 200 MG/20 ML VIAL IV ONE ×2 (12:46→12:51)
[2021-06-26] MEDS ORDERED: LIDOCAINE 2% 5 ML VIAL ONE (12:46)
[2021-06-26] MEDS: VENLAFAXINE XR 37.5 MG CAPSULE PO SCH (14:17)
[2021-06-26] MEDS: DICLOFENAC SODIUM 75 MG TABLET PO SCH ×2 (14:17→20:49)
[2021-06-26] MEDS: ISOSORBIDE MONONITRATE 60 MG TABLET PO SCH (14:18)
[2021-06-26] MEDS: TAMSULOSIN 0.4 MG CAPSULE PO SCH ×2 (14:18→20:49)
[2021-06-26] MEDS: DUTASTERIDE 0.5 MG CAPSULE PO SCH (14:18)
[2021-06-26] MEDS: BEE POLLEN 550 MG PO SCH ×2 (14:19→20:49)
[2021-06-26] MEDS ORDERED: MAGNESIUM SULF RIDER 4 GM/100 ML PREMIX IV PRN (15:34)
[2021-06-26] MEDS ORDERED: MAGNESIUM SULF RIDER 2 GM/50 ML PREMIX IV PRN (15:34)
[2021-06-26 18:16] LABS: CDT Result Positive (Negative); CDT Specimen Source STOOL
[2021-06-26] MEDS: ASPIRIN 325 MG TABLET PO SCH (20:49)
[2021-06-26] MEDS: ATORVASTATIN 80 MG TABLET PO SCH (20:49)
[2021-06-27] MEDS: SODIUM CHLORIDE 0.9% 1,000 ML IV SCH ×2 (01:58→13:43)
[2021-06-27 05:28] LABS: Basophils % 0.5 % (0.0-0.8); Eosinophils # 0.2 10*3/uL (0.0-0.87); Eosinophils % 4.1 % (0.00-10.9); Hematocrit 34.5 VOL% (42.0-52.0); Hemoglobin 11.5 GM/DL (14.0-18.0); Immature Granulocytes % 0.5 %; Immature Granulocytes Absolute 0.03 #; Lymphocytes # 1.3 10*3/uL (1.4-4.0); Lymphocytes % 21.9 % (21.2-54.2); Mean Corpuscular HGB Conc 33.3 GM/DL (32-36); Mean Corpuscular Volume 94.3 FL (87-102); Mean Platelet Volume 9.7 FL (9.6-12.0); Monocytes % 9.5 % (1.7-12.7); Neutrophils % 63.5 % (38.7-73.9); Platelet Count 225 T/CUMM (130-400); Red Blood Count 3.66 MC/CUMM (3.8-5.5); Red Cell Distribution Width 13.5 % (9.3-17.3); White Blood Count 5.8 T/CUMM (4-12)
[2021-06-27] MEDS: VANCOMYCIN 50 MG/ML 60 ML/BOTTLE PO SCH ×2 (05:53→12:02)
[2021-06-27 06:01] LABS: Albumin 2.9 G/DL (3.4-5.0); Bilirubin,Total 0.9 MG/DL (0.20-1.00); Calcium 8.6 MG/DL (8.5-10.1); Osmolality,Calculated 280.1 MOS/KG (273-304); Total Protein 6.1 G/DL (6.4-8.2)
[2021-06-27 08:28] VITALS: BP 144/78
[2021-06-27] MEDS: DUTASTERIDE 0.5 MG CAPSULE PO SCH (09:54)
[2021-06-27] MEDS: VENLAFAXINE XR 37.5 MG CAPSULE PO SCH (09:54)
[2021-06-27] MEDS: TAMSULOSIN 0.4 MG CAPSULE PO SCH (09:54)
[2021-06-27] MEDS: METOPROLOL SUCCINATE XL 25 MG TABLET PO SCH (09:55)
[2021-06-27] MEDS: DICLOFENAC SODIUM 75 MG TABLET PO SCH (09:55)
[2021-06-27] MEDS: ISOSORBIDE MONONITRATE 60 MG TABLET PO SCH (09:55)
[2021-06-27] MEDS: BEE POLLEN 550 MG PO SCH (09:55)
[2021-06-27] MEDS: LACTATED RINGERS 1,000 ML IV SCH (10:32)
== END 2021-06-27 13:10 | disposition home or self-care (01) | DRG 373 ==
LOC: N.ED 15:39 → N.EDINP 15:39 → SUATTDRO 18:24 → N.TELEN 20:26
PROVIDERS: ADMIT Internal Medicine; ATTEND Emergency Medicine